=== PATIENT | female | born 1950 | race Two or more races ===

== ENCOUNTER 2024-12-31 17:04 | Emergency (ER) | payer OTHER ==
[~2024-12-31] VITALS: Ht 160 cm; Wt 58.2 kg
[2024-12-31] MEDS: KETOROLAC TROMETH 60MG/2ML VIAL IM ONE (18:00)
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
[2024-12-31 20:35] VITALS: BP 200/74; PULSE 61; RESP 16; TEMP 98; O2SAT 97
[2024-12-31] MEDS: HYDROcodone-ACET 5/325MG TAB PO ONE (21:03)
== END 2024-12-31 19:53 | disposition home or self-care (01) ==
LOC: ER 17:04
DX: S33.5XXA Sprain of ligaments of lumbar spine, initial encounter (principal); V89.2XXA Person injured in unspecified motor-vehicle accident, traffic, initial encounter; Y93.89 Activity, other specified; Y92.488 Other paved roadways as the place of occurrence of the external cause; Y99.8 Other external cause status
CPT/HCPCS: 72131; J1100; J1885